=== PATIENT | male | born 1985 | race Caucasian/White ===

== ENCOUNTER 2016-11-28 13:56 | Emergency (ER) | payer MEDICAID, SELFPAY ==
[~2016-11-28] VITALS: Ht 185.4 cm; Wt 99.2 kg
[2016-11-28 14:07] VITALS: BP 147/80
== END 2016-11-28 14:50 | disposition home or self-care (01) ==
LOC: ED 14:35
DX: F31.9 Bipolar disorder, unspecified (principal); Z76.0 Encounter for issue of repeat prescription
CPT/HCPCS: 99281

== ENCOUNTER 2016-12-07 18:31 | Emergency (ER) | payer MEDICAID ==
[~2016-12-07] VITALS: Ht 185.4 cm; Wt 101.5 kg
[2016-12-07] MEDS ORDERED: DIVA500T2 PO (19:20)
[2016-12-07] MEDS ORDERED: LORazepam 1MG TABLET PO ONE (19:30)
[2016-12-07] MEDS ORDERED: LORazepam 1MG TABLET ONE (19:35)
[2016-12-07] MEDS ORDERED: ZIPR20CA2 PO (19:44)
[2016-12-07 19:48] LABS: DAU SCREEN DISCLAIMER
[2016-12-07 20:00] LABS: BLOOD UREA NITROGEN 17 mg/dL (7-18)
[2016-12-07 20:02] LABS: ACETAMINOPHEN < 2 mcg/mL (10-30)
[2016-12-07 21:13] VITALS: BP 143/88
== END 2016-12-07 22:39 | disposition home or self-care (01) ==
LOC: ED 20:13
DX: F31.9 Bipolar disorder, unspecified (principal)
CPT/HCPCS: 36415; 80048; 80307; 80329; 82040; 85025; 99284; G0480

== ENCOUNTER 2017-01-04 10:57 | Emergency (ER) | payer MEDICAID ==
[~2017-01-04] VITALS: Ht 185.4 cm; Wt 113.4 kg
[~2017-01-04 10:57] MED LIST: DIVA500T2 PO; ZIPR20CA2 PO
[2017-01-04] MEDS ORDERED: KETOROLAC 30 MG/1 ML IVPush ONE (12:30)
[2017-01-04] MEDS ORDERED: ONDANSETRON 2MG/ML, 2ML IVPush ONE (12:30)
[2017-01-04] MEDS ORDERED: SODIUM CHLORIDE FLUSH 10ML SYR IVF ONE (12:30)
[2017-01-04] MEDS ORDERED: SODIUM CHLORIDE 0.9% 1,000ML IVBOLUS ONE (12:30)
[2017-01-04] MEDS ORDERED: FAMOTIDINE 20 MG/2 ML IVP ONE (12:30)
[2017-01-04] MEDS ORDERED: KETOROLAC 30 MG/1 ML ONE (12:40)
[2017-01-04] MEDS ORDERED: ONDANSETRON 2MG/ML, 2ML ONE (12:40)
[2017-01-04] MEDS ORDERED: FAMOTIDINE 20 MG/2 ML ONE (12:41)
[2017-01-04 12:49] LABS: BLOOD UREA NITROGEN 19 mg/dL (7-18)
[2017-01-04 12:52] LABS: ASPARTATE AMINO TRANSFERASE 17 U/L (15-37)
[2017-01-04 15:31] VITALS: BP 113/60
== END 2017-01-04 15:48 | disposition home or self-care (01) ==
LOC: ED 12:26
DX: R11.2 Nausea with vomiting, unspecified (principal); R19.7 Diarrhea, unspecified
CPT/HCPCS: 36415; 76700; 80053; 83690; 85025; 96361; 96374; 96375; 99285; J1885; J2405; J7030; S0028

== ENCOUNTER 2017-02-07 20:26 | Emergency (ER) | payer MEDICAID ==
[~2017-02-07] VITALS: Ht 185.4 cm; Wt 112.8 kg
[2017-02-07 20:29] VITALS: BP 143/87
[2017-02-07] MEDS ORDERED: HYDROcodone/APAP 5/325 TABLET ONE (20:52)
[2017-02-07] MEDS ORDERED: HYDROcodone/APAP 5/325 TABLET PO ONE (21:00)
== END 2017-02-07 21:03 | disposition home or self-care (01) ==
LOC: ED 20:30
DX: H60.312 Diffuse otitis externa, left ear (principal)
CPT/HCPCS: 99283